=== PATIENT | female | born 1990 | race American Indian/Alaskan Native ===

== ENCOUNTER 2017-07-03 12:35 | Emergency (ER) | payer SELFPAY ==
[2017-07-03 13:27] LABS: Basophils % (Auto) 0.2 % (0.0-1.8); Eosinophils % (Auto) 1.2 % (0.0-4.3); Hematocrit 31.3 % (30.3-42.9); Hemoglobin 10.1 gm/dl (10.1-14.3); Mean Corpuscular HGB Conc 32 % (30-34); Red Blood Count 4.57 M/mm3 (3.65-5.03); Red Cell Distribution Width 19.5 % (13.2-15.2); White Blood Count 6.2 K/mm3 (4.5-11.0)
[2017-07-03 13:39] LABS: INR 1.13 (0.87-1.13)
[2017-07-03 13:40] LABS: Partial Thromboplastin Time 33.2 Sec. (24.2-36.6)
--- NOTE | 2017-07-03 13:41 | Emergency Department Report ---
HPI - General Chief Complaint: Vaginal Bleeding Time Seen by Provider: 07/03/17 13:17 - HPI HPI: This is a 26-year-old [place] female presents to the emergency department from home with complaint of vaginal bleeding. Patient says for the past 2 days she's been having vaginal bleeding but now she has noticed some clots, the quantity has increased by a lot and she started developing some abdominal cramping and some dizziness. The patient had a at [facility] on June 05 in which they inserted "the pills" in her vagina. She did have some moderate bleeding at that time but that did slow up. However she did have some nausea and vomiting continuously afterwards. With this past she was with 2 total miscarriages/abortions and 2 live children. She has not taken anything for her symptoms prior to presentation. She does not have a OB/ MERCHANDISE STOCKER or primary care physician. ED Past Medical Hx - Past Medical History Previous Medical History?: Yes Hx Asthma: Yes - Surgical History Past Surgical History?: No - Social History Smoking Status: Never Smoker Substance Use Type: None - Medications Home Medications: Home Medications Medication Instructions Recorded Confirmed Last Taken Type Methylergonovine [Methergine] 0.2 mg PO Q6H #4 tablet 07/03/17 Unknown Rx ED Review of Systems ROS: Stated complaint: VAGINAL BLEEDING Other details as noted in HPI Comment: All other systems reviewed and negative Constitutional: denies: chills, fever Eyes: denies: eye pain, eye discharge, vision change ENT: denies: ear pain, throat pain Respiratory: denies: cough, shortness of breath, wheezing Cardiovascular: denies: chest pain, palpitations Gastrointestinal: abdominal pain. denies: nausea, vomiting Genitourinary: other (vaginal bleeding). denies: dysuria Musculoskeletal: denies: back pain, joint swelling, arthralgia Skin: denies: rash, lesions Neurological: denies: headache, weakness, paresthesias Physical Exam - Physical Exam Vital Signs: Vital Signs 07/03/17 12:47 Temperature 98.7 F Pulse Rate 106 H Respiratory 22 Rate Blood Pressure 121/72 O2 Sat by Pulse 100 Oximetry Physical Exam: GENERAL: The patient is well-developed well-nourished. HEENT: Normocephalic. Atraumatic. Extraocular motions are intact. Patient has moist mucous membranes. Pupils equal reactive to light bilaterally. NECK: Supple. Trachea is midline. CHEST/LUNGS: Clear to auscultation. There is no respiratory distress noted. HEART/CARDIOVASCULAR: Regular. There is no tachycardia. There is no gallop rub or murmur. ABDOMEN: Abdomen is soft, nontender. Patient has normal bowel sounds. There is no abdominal distention. SKIN: Skin is warm and dry. NEURO: The patient is awake, alert, and oriented. The patient is cooperative. The patient has no focal neurologic deficits. The patient has normal speech. MUSCULOSKELETAL: There is no tenderness or deformity. There is no limitation range of motion. There is no evidence of acute injury. : There are no vaginal or labial lesion seen. There is a large amount of clotted and/or coagulated blood seen in the vaginal vault. ED Course Vital Signs 07/03/17 12:47 Temperature 98.7 F Pulse Rate 106 H Respiratory 22 Rate Blood Pressure 121/72 O2 Sat by Pulse 100 Oximetry - Consultations Consultation #1: I contacted the SALES REPRESENTATIVE DOOR TO DOOR patient registration rep, Dr. Aguillon. The crystal lapper callback and spoke with Dr. Aguillon as well and says that we should be giving Methergine 0.2 mg IM [address] Aguillon will come to the emergency department for evaluation of this patient. 07/03/17 15:50 ED Medical Decision Making - Lab Data Result diagrams: 07/03/17 13:03 - Medical Decision Making 26-year-old female presents with vaginal bleeding a few weeks after trying to do a chemical in the [facility]. She presents with a moderate to large amount of bleeding and clots. Vital signs stable. ED course. Patient does not appear in any acute distress. Ultrasound shows a thickened endometriosis. No obvious signs of intrauterine . SALES REPRESENTATIVE DOOR TO DOOR was contacted and the patient was given Methergine IM here and a prescription for Methergine for home. She was seen by the SALES REPRESENTATIVE DOOR TO DOOR in the emergency department and was given instructions for follow-up with Dr. Aguillon for this coming week. Patient understands and agrees the plan. - Differential Diagnosis , threatened miscarriage, spontaneous miscarriage, menorrhagia Critical Care Time: No Critical care attestation.: If time is entered above; I have spent that time in minutes in the direct care of this critically ill patient, excluding procedure time. ED Disposition Clinical Impression: Vaginal hemorrhage, Postabortion hemorrhage Disposition: DC-01 TO HOME OR SELFCARE Is pt being admited?: No Condition: Good Additional Instructions: Call office for any concerns or problems specifically increasing bleeding, change in pelvic or abdominal pain, dizziness, lightheadedness, nausea, vomiting , fever or chills Prescriptions: Methylergonovine [Methergine] 0.2 mg PO Q6H #4 tablet Referrals: GABI AGUILLON MD [Staff Physician] - 07/09/17 9:15 am ([place]) Time of Disposition: 20:11
[2017-07-03 13:43] LABS: Mean Corpuscular Hemoglobin 22 pg (28-32); Mean Corpuscular Volume 69 fl (79-97)
[2017-07-03 13:48] LABS: Bilirubin,Urine NEG (Negative); Blood,Urine NEG (Negative); Ketones,Urine NEG (Negative); Leukocyte Esterase,Urine NEG (Negative); Mucus,Urine FEW /HPF; Nitrite,Urine NEG (Negative); Protein,Urine <15 mg/dL mg/dL (Negative); RBC,Urine < 1.0 /HPF (0.0-6.0); Urobilinogen,Urine < 2.0 mg/dL (<2.0); WBC,Urine < 1.0 /HPF (0.0-6.0)
[2017-07-03 14:34] LABS: Platelet Count 142 K/mm3 (140-440)
--- NOTE | 2017-07-03 15:04 | Ultrasound Report ---
ULTRASOUND OB LESS THAN 14 WEEKS - TRANSABDOMINAL AND TRANSVAGINAL INDICATION: Vaginal bleeding, status post pill insertion on 06/05/2017. Serum beta-hCG of 5,504 units. COMPARISON: None similar at this institution. FINDINGS: Transabdominal and transvaginal pelvic sonography performed in this patient with LMP of 04/19/2017 and estimated menstrual age of 10 weeks and 5 days. An anteverted uterus measuring approximately 12.2 x 5.2 x 5.7 cm demonstrates endometrial heterogeneity with bilaminar thickness estimated at 2.2 cm towards the fundus, endovaginal image 13. No gestational sac or pole noted. Few small slightly complex nabothian cysts measure up to 1.2 cm. No significant pelvic free fluid. Right ovary is 3.5 x 1.9 x 2.8 cm with an approximately 1.7 x 1.2 cm slightly complex intrinsic possible corpus luteum. Left ovary unremarkable at 2.8 x 2 x 2 cm. CONCLUSION: 1. No sonographic evidence of a viable intrauterine gestation at this time with nonspecific endometrial thickening/heterogeneity noted, as described. 2. Both ovaries identified, as above. Please also correlate clinically, with serial serum beta-hCG values and/or followup sonogram, as warranted. Thank you for the opportunity to participate in this patient's care.
[2017-07-03] MEDS ORDERED: METHERGINE IM ONE (15:50)
--- NOTE | 2017-07-03 19:46 | Short Stay Summary ---
Short Stay Documentation Date of service: 07/03/17 Narrative H&P: This is a 26-year-old female who presents with increasing vaginal bleeding over the last 2 days. LMP 04/25/2017.She gives a history of having a chemical in [facility] on 06/05/2017. She noted mild spotting and cramping immediately after inserting the 2 " pills" in her vagina. Patient states she has not had sex since using the pills. Her quantitative beta hCG was 5500. Ultrasound was negative for evidence of ectopic . Patient was given Methergine 0.2 mg IM. She now has minimal bleeding. - History Principal diagnosis: complete Past Medical History: other (asthma) Past Surgical History: Other (D&C for a missed ) Social history: no significant social history - Allergies and Medications Current Medications: Allergies No Known Allergies Allergy (Unverified 07/03/17 12:55) Metered-dose inhaler - Physical exam General appearance: no acute distress Lungs: Normal air movement Breasts: deferred Gastrointestinal: normal, no tenderness, no distended, no guarding Female Genitourinary: other (skin amount of bleeding from the vagina. Cervix is long and closed. No clots were noted in the vagina. Uterus is small and nontender.) Extremities: no ischemia - Hospital course Hospital course: Patient was observed in ED after Methergine was given. She was resting in bed with no complaints minimal bleeding noted. Abdomen remained soft nontender - Disposition Condition at discharge: Good Disposition: DC-01 TO HOME OR SELFCARE - Discharge Diagnoses (1) , complete with hemorrhage Status: Resolved Comment: Patient was informed although she currently has no evidence of an ectopic , an ectopic cannot be completely ruled out. Ectopic was explained along with signs and symptoms of a ruptured ectopic such as bleeding, lightheadedness, dizziness, and severe abdominal pain. Questions were encouraged and answered. Patient states she will always have someone present with her who can get her back to the ED if needed. The importance of following her quantitative beta hCGs to 0 was emphasized. She will be allowed to go home now. She voiced understanding and agrees with plan of care. Short Stay Discharge Plan Activity: other (no sex. Patient was instructed to stay home until she arranges follow-up in the office for evaluation. No driving.) Diet: regular Special Instructions: no heavy lifting Additional Instructions: Call office for any concerns or problems specifically increasing bleeding, change in pelvic or abdominal pain, dizziness, lightheadedness, nausea, vomiting , fever or chills Follow up with: GABI WREN MD [Staff Physician] - 07/09/17 9:15 am ([place])
[2017-07-03 19:58] VITALS: BP 101/57
== END 2017-07-03 20:25 | disposition home or self-care (01) ==
LOC: ED 12:35
DX: O03.9 Complete or unspecified spontaneous abortion without complication (principal); J45.909 Unspecified asthma, uncomplicated; Z3A.01 Less than 8 weeks gestation of pregnancy
CPT/HCPCS: 36415; 76801; 76817; 81001; 84702; 85025; 85610; 85730; 86850; 86900; 86901; 96372; 99285; J2210